=== PATIENT | male | born 1955 | race Caucasian/White ===

== ENCOUNTER 2022-06-01 06:19 | Emergency (ER) | payer OTHER ==
[~2022-06-01] VITALS: Ht 185.4 cm; Wt 93.0 kg
--- NOTE | 2022-06-01 06:25 | NUR ---
Patient to ER bed 02 to gown for evaluation. Side rails up. Report given to ERICA OKEEFE.
--- NOTE | 2022-06-01 06:26 | NUR ---
Patient BIBA from home for generalized weakness and left knee pain that's been ongoing, unable to get out of bed without assistance this morning. Family denied any recent injury or falls but is currently non-weight bearing on the left knee due to a previous fall. Patient is alert and oriented x3, respirations even and unlabored, needs a little redirection but answering questions appropriately. VSS. Instructed to notify ED staff for any changes in condition or worsening of symptoms, patient verbalized understanding.
--- NOTE | 2022-06-01 06:27 | NUR ---
Dr. Zaman at bedside examining the patient.
[2022-06-01 06:28] VITALS: BP_SYST 123
--- NOTE | 2022-06-01 06:40 | NUR ---
[employer] Consultant at bedside for blood specimen collection.
--- NOTE | 2022-06-01 06:47 | NUR ---
Portable x-ray done at bedside as ordered.
[2022-06-01 06:53] LABS: BASOPHILS # (AUTO) 0.1 K/uL (0.0-0.2); BASOPHILS % (AUTO) 0.6 % (0.0-2.0); EOSINOPHILS % (AUTO) 0.4 % (0.0-4.0); HEMATOCRIT 38.7 % (36-54); HEMOGLOBIN 12.9 g/dL (14.0-18.0); LYMPHOCYTES # (AUTO) 1.6 K/uL (1.0-5.5); LYMPHOCYTES % (AUTO) 14.5 % (20.5-51.5); MEAN CORPUSCULAR HEMOGLOBIN 30 pg (27-31); MEAN CORPUSCULAR HGB CONC 33 % (32-36); MEAN CORPUSCULAR VOLUME 90 fL (79.0-98.0); MONOCYTES # (AUTO) 1.3 K/uL (0.0-1.0); MONOCYTES % (AUTO) 11.6 % (1.7-9.3); NEUTROPHILS # (AUTO) 8.1 K/uL (1.8-7.7); NEUTROPHILS % (AUTO) 72.9 % (40.0-70.0); PLATELET COUNT (AUTO) 188 K/uL (130-430); RED BLOOD CELL COUNT(AUTO) 4.31 MIL/uL (4.2-6.2); RED CELL DISTRIBUTION WIDTH 13.7 % (9.0-15.0); WHITE BLOOD COUNT (AUTO) 11.1 K/uL (4.8-10.8)
[2022-06-01 06:59] LABS: ERYTHROCYTE SEDIMENTATION RATE 21 MM/HR (0-15)
[2022-06-01 07:09] LABS: CALCIUM 8.6 mg/dL (8.4-11.0); CREATININE 0.91 mg/dL (0.55-1.30)
[2022-06-01 07:14] LABS: ALBUMIN 3.1 g/dL (3.4-4.8); TOTAL BILIRUBIN 1.2 mg/dL (0.0-1.0)
--- NOTE | 2022-06-01 07:15 | NUR ---
Report received from Ekta MALDONADO.
--- NOTE | 2022-06-01 07:17 | NUR ---
Report given and care transferred to Sharmila for continuity of care.
--- NOTE | 2022-06-01 07:51 | NUR ---
Xray at bedside
[2022-06-01] MEDS ORDERED: ACET-2634 PO (08:28)
[2022-06-01] MEDS ORDERED: KETOROLAC TROMETHAMINE 30 MG VIAL IM ONE (08:45)
--- NOTE | 2022-06-01 09:04 | NUR ---
Toradol 30mg IM given in left vastus lateralis. Patient denies allergies, verified name and with help of sister at bedside, verified . Patient approved of administration amd site prior to giving. Patient tolerated injection wel.
--- NOTE | 2022-06-01 09:34 | NUR ---
Patient given written and verbal discharge instructions and verbalizes understanding. ER MD Zaman discussed with patient the results and treatment provided. Patient in stable condition. ID arm band removed. Rx of Tylenol 500mg given. Patient educated on pain management and to follow up with PMD. Pain Scale 7/10, improved post toradol 30mg IM injection. Opportunity for questions provided and answered. Medication side effect fact sheet provided. Patient discharged awake, alert, and oriented in stable condition with sister. Patient verbally requested sister sign the discharge summary.
[2022-06-01 10:56] VITALS: BP_SYST 128
--- NOTE | 2022-06-01 11:18 | NUR ---
DOCUMENTATION CORRECTION: Intervention time not changed upon documentation. Patient discharged at 0940. Pain reassessment completed at 0930.
== END 2022-06-01 09:34 | disposition home or self-care (01) ==
LOC: SED 06:19
DX: M79.662 Pain in left lower leg (principal); M79.661 Pain in right lower leg; E87.1 Hypo-osmolality and hyponatremia; I10 Essential (primary) hypertension; Z79.899 Other long term (current) drug therapy
CPT/HCPCS: 99284; 80053; 85025; 85651; 86140; 36415; 73564; 73590; 73610; 73620; 96372; 73560; J1885

== ENCOUNTER 2022-10-04 10:45 | Emergency (ER) | payer OTHER ==
[~2022-10-04] VITALS: Ht 193 cm; Wt 88.5 kg
[~2022-10-04 10:45] MED LIST: ACET-2634 PO
[2022-10-04 11:10] VITALS: BP_SYST 126; PULSE 80; RESP 16; TEMP 97.8; O2SAT 97
== END 2022-10-04 12:43 | disposition left against medical advice (07) ==
LOC: SED 10:45
DX: R22.42 Localized swelling, mass and lump, left lower limb (principal); R06.02 Shortness of breath; Z53.21 Procedure and treatment not carried out due to patient leaving prior to being seen by health care provider
CPT/HCPCS: 99281